=== PATIENT | male | born 1995 | race African-American/Black ===

== ENCOUNTER 2019-07-02 18:05 | Emergency (ER) | payer OTHER ==
[~2019-07-02] VITALS: Ht 182.9 cm; Wt 107.5 kg
[2019-07-02 18:18] VITALS: BP 157/94
[2019-07-02] MEDS ORDERED: CEPH-264 PO (18:56)
--- NOTE | 2019-07-02 18:56 | PHYS DOC ---
Past History Past Medical History: No Pertinent History Past Surgical History: No Surgical History Alcohol Use: None Drug Use: None Adult General Chief Complaint Chief Complaint: LACERATION/AVULSION [facility] HPI 23-year-old male presents with right eyebrow laceration. The patient was playing pickup football and during a tackle a cleat lacerated his eyebrow. The patient had immediate bleeding. He could tell it was deep enough to need stitches so he came to the emergency room. Patient did not lose consciousness. He has no other complaints at this time. His tetanus is up-to-date. Review of Systems Review of Systems Constitutional: Denies fever or chills [] Eyes: Denies change in visual acuity, redness, or eye pain [] HENT: Denies nasal congestion or sore throat [] Respiratory: Denies cough or shortness of breath [] Cardiovascular: No additional information not addressed in HPI [] GI: Denies abdominal pain, nausea, vomiting, bloody stools or diarrhea [] : Denies dysuria or hematuria [] Musculoskeletal: Denies back pain or joint pain [] Integument: Laceration of the right eyebrow[] Neurologic: Denies headache, focal weakness or sensory changes [] Endocrine: Denies polyuria or polydipsia [] All other systems were reviewed and found to be within normal limits, except as documented in this note. Allergies Allergies Allergies Coded Allergies Type Severity Reaction Last Updated Verified No Known Drug Allergies 07/02/19 No Physical Exam Physical Exam Constitutional: Well developed, well nourished, no acute distress, non-toxic appearance. [] HENT: Normocephalic, atraumatic, bilateral external ears normal, oropharynx moist, no oral exudates, nose normal. [] Eyes: PERRLA, EOMI, conjunctiva normal, no discharge. [] Neck: Normal range of motion, no tenderness, supple, no stridor. [] Cardiovascular:Heart rate regular rhythm, no murmur [] Lungs & Thorax: Bilateral breath sounds clear to auscultation [] Abdomen: Bowel sounds normal, soft, no tenderness, no masses, no pulsatile masses. [] Skin: 3 cm linear laceration of the right eyebrow region.[] Back: No tenderness, no CVA tenderness. [] Extremities: No tenderness, no cyanosis, no clubbing, ROM intact, no edema. [] Neurologic: Alert and oriented X 3, normal motor function, normal sensory function, no focal deficits noted. [] Psychologic: Affect normal, judgement normal, mood normal. [] Current Patient Data Vital Signs Vital Signs Date Time Temp Pulse Resp B/P (MAP) Pulse Ox O2 Delivery O2 Flow Rate FiO2 07/02/19 18:18 99.1 74 16 100 Room Air EKG EKG [] Radiology/Procedures Radiology/Procedures [] Course & Med Decision Making Course & Med Decision Making Pertinent Labs and Imaging studies reviewed. (See chart for details) The patient had a laceration of his right eyebrow. I repaired it with sutures. See laceration note for more details. Patient's tetanus is up-to-date. I will discharge him on Keflex for 7 days due to the dirty nature of the wound. He is stable for discharge at this time. [] Dragon Disclaimer Dragon Disclaimer This electronic medical record was generated, in whole or in part, using a voice recognition dictation system. Laceration Repair Lac Repair Indication: []3 cm linear laceration of the right eyebrow Procedure: Oral consent was obtained from the patient for suture repair of the right eyebrow laceration. Wound was cleansed with normal saline under pressure. No foreign bodies are found. I anesthetized the wound with 1% lidocaine with epinephrine. A total of 2 mL was used. Once good anesthesia was achieved, I repaired the laceration with 6 4-0 Ethilon sutures in interrupted fashion. There was good skin approximation. Bleeding was well-controlled. No dressing was placed over the wound. The patient's tetanus is up-to-date. Total repaired wound length: 3 Centimeter Other Items: None The patient tolerated the procedure well. Complications: None. Departure Departure: Impression: Primary Impression: Laceration of right eyebrow without complication Disposition: 01 HOME, SELF-CARE Condition: IMPROVED Patient Instructions: Facial Laceration, [id number], Laceration Care, Adult, [id number] Scripts Cephalexin (KEFLEX) 500 Mg Capsule 1 CAP PO BID for infection prophylaxis for 7 Days, #14 CAP Prov: MARIUM VELIZ DO 07/02/19 Problem Qualifiers Primary Impression: Laceration of right eyebrow without complication Encounter type: initial encounter Qualified Codes: S01.111A - Laceration without foreign body of right eyelid and periocular area, initial encounter MARIUM VELIZ DO Jul 02, 2019 18:56
[2019-07-02] MEDS ORDERED: CEPHALEXIN 250 MG CAPSULE PO ONE (19:00)
== END 2019-07-02 19:14 | disposition home or self-care (01) ==
LOC: ER 18:05
DX: S01.111A Laceration without foreign body of right eyelid and periocular area, initial encounter (principal); W03.XXXA Other fall on same level due to collision with another person, initial encounter; Y93.61 Activity, american tackle football; Y92.89 Other specified places as the place of occurrence of the external cause; Y99.8 Other external cause status
CPT/HCPCS: 12013; 99283

== ENCOUNTER 2019-07-11 10:56 | Emergency (ER) | payer OTHER ==
[~2019-07-11] VITALS: Ht 182.9 cm; Wt 107.5 kg
[~2019-07-11 10:56] MED LIST: CEPH-264 PO
--- NOTE | 2019-07-11 11:06 | PHYS DOC ---
Past History Past Medical History: No Pertinent History Past Surgical History: No Surgical History Alcohol Use: None Drug Use: None Adult General Chief Complaint Chief Complaint: WOUND RECHECK/SUTURE REMOVAL [facility] HPI Patient is a 23-year-old male who presents for suture removal after having had stitches placed a week ago above right eyebrow. Patient states that he has had no complaints, pain, swelling or other signs of infection to the area.[] Review of Systems Review of Systems Constitutional: Denies fever or chills [] Respiratory: Denies cough or shortness of breath [] Cardiovascular: No additional information not addressed in HPI [] Integument: Denies rash or skin lesions [] Allergies Allergies Allergies Coded Allergies Type Severity Reaction Last Updated Verified No Known Drug Allergies 07/02/19 No Physical Exam Physical Exam Constitutional: Well developed, well nourished, no acute distress, non-toxic appearance. [] Skin: Warm, dry, no erythema, no rash. Wound clean dry and intact, with no signs of infection, healing well. [] Neurologic: Alert and oriented X 3. [] EKG EKG [] Radiology/Procedures Radiology/Procedures [] Course & Med Decision Making Course & Med Decision Making Pertinent Labs and Imaging studies reviewed. (See chart for details) Sutures removed by ER medic. Raj Disclaimer Dragon Disclaimer This electronic medical record was generated, in whole or in part, using a voice recognition dictation system. Departure Departure: Impression: Primary Impression: Encounter for removal of sutures Disposition: HOME, SELF-CARE Condition: STABLE Referrals: PCP,NO (PCP) Patient Instructions: Suture Removal ARABELLA VAZQUEZ Jr., DO Jul 11, 2019 11:06
== END 2019-07-11 11:29 | disposition home or self-care (01) ==
LOC: ER 10:56
DX: S01.81XD Laceration without foreign body of other part of head, subsequent encounter (principal); X58.XXXD Exposure to other specified factors, subsequent encounter
CPT/HCPCS: 99281